=== PATIENT | female | born 1950 | race Caucasian/White ===

== ENCOUNTER 2017-10-19 09:26 | Outpatient (CLI) | payer MEDICARE, OTHER ==
[2016-11-02 18:35] VITALS: BP 126/99
[2017-10-19 10:14] LABS: eGFR (African) > 60; eGFR (Non-African) > 60
[2017-10-19 12:19] LABS: APPEARANCE,URINE Clear (CLEAR); COLOR,URINE Yellow (YELLOW); OCCULT BLOOD,URINE 2+ (NEGATIVE); UROBILINOGEN URINE 0.2 Eu (0.2-1.0)
[2017-10-19 12:33] LABS: AMORPHOUS SEDIMENT,UR FEW (NEGATIVE)
== END 2017-10-19 09:27 ==
LOC: LAB 09:26
PROVIDERS: ATTEND Family Medicine
DX: E78.2 Mixed hyperlipidemia (principal); R31.21 Asymptomatic microscopic hematuria
CPT/HCPCS: 36415; 80053; 80061; 81002

== ENCOUNTER 2018-10-26 10:17 | Outpatient (CLI) | payer MEDICARE, OTHER ==
[2016-11-02 18:35] VITALS: BP 126/99
[2018-10-26 11:20] LABS: eGFR (Non-African) > 60
== END 2018-10-26 10:19 ==
LOC: RAD 10:17
PROVIDERS: ATTEND Family Medicine
DX: E78.2 Mixed hyperlipidemia (principal); R31.21 Asymptomatic microscopic hematuria; M85.80 Other specified disorders of bone density and structure, unspecified site; Z78.0 Asymptomatic menopausal state
CPT/HCPCS: 36415; 77080; 80053; 80061

== ENCOUNTER 2018-11-10 09:53 | Outpatient (CLI) | payer MEDICARE, OTHER ==
[2016-11-02 18:35] VITALS: BP 126/99
[2018-11-10 10:53] LABS: eGFR (Non-African) > 60
== END 2018-11-10 09:55 ==
LOC: LAB 09:53
PROVIDERS: ATTEND Family Medicine
DX: E87.1 Hypo-osmolality and hyponatremia (principal)
CPT/HCPCS: 36415; 80048

== ENCOUNTER 2019-10-25 08:55 | Outpatient (CLI) | payer MEDICARE, OTHER ==
[2016-11-02 18:35] VITALS: BP 126/99
[2019-10-25 09:34] LABS: APPEARANCE,URINE CLEAR (CLEAR); COLOR,URINE YELLOW (YELLOW); OCCULT BLOOD,URINE 2+ (NEGATIVE); UROBILINOGEN URINE 0.2 Eu (0.2-1.0)
[2019-10-25 10:03] LABS: eGFR (Non-African) > 60
[2019-10-25 10:08] LABS: HDL 115 mg/dL (>40)
== END 2019-10-25 09:00 ==
LOC: LAB 08:55
PROVIDERS: ATTEND Family Medicine
DX: E78.2 Mixed hyperlipidemia (principal); R31.9 Hematuria, unspecified
CPT/HCPCS: 36415; 80053; 80061; 81002

== ENCOUNTER 2019-11-24 09:50 | Outpatient (CLI) | payer MEDICARE, OTHER ==
[2016-11-02 18:35] VITALS: BP 126/99
[2019-11-24 10:18] LABS: eGFR (Non-African) > 60
== END 2019-11-24 09:55 ==
LOC: LAB 09:50
PROVIDERS: ATTEND Family Medicine
DX: I10 Essential (primary) hypertension (principal)
CPT/HCPCS: 36415; 80048